=== PATIENT | female | born 1980 | race American Indian/Alaskan Native ===

== ENCOUNTER 2021-04-02 11:57 | Day surgery (SDC) | payer MEDICARE ==
[2021-04-02] MEDS ORDERED: SODIUM CHLORIDE 0.9% 500 ML 500 ML IV SCH (13:00)
[2021-04-02] MEDS ORDERED: HEPARIN/NS 5000 UNIT/500ML 500 ML IR ONE (13:28)
[2021-04-02] MEDS ORDERED: LIDOCAINE (2%) 20 MG/1 ML VIAL 20 ML MDV INFILTRATI ONE (13:28)
[2021-04-02] MEDS ORDERED: SODIUM CHLORIDE 0.9% 250ML 250 ML ONE (13:29)
[2021-04-02 13:38] LABS: Calcium 7.4 mg/dL (8.4-10.2)
[2021-04-02] MEDS: MIDAZOLAM 2 MG/2 ML INJ ONE ×2 (14:47→15:00)
[2021-04-02] MEDS: fentaNYL 100 MCG/2 ML INJ ONE ×2 (14:47→15:00)
[2021-04-02] MEDS: LIDOCAINE (2%) 20 MG/1 ML VIAL 20 ML MDV INFILTRATI ONE ×2 (14:47→15:00)
[2021-04-02] MEDS: HEPARIN 10,000 UNITS/10 ML VIAL ONE ×6 (14:48→15:27)
--- NOTE | 2021-04-02 15:44 | Short Stay Summary ---
Short Stay Documentation Date of service: 04/02/21 Narrative H&P: See Written Short Stay - Allergies and Medications Current Medications: Allergies Penicillins Allergy (Unverified 04/02/21 11:58) Itching,RASH Active Medications Sodium Chloride (Nacl 0.9% 500 Ml) 500 mls @ 50 mls/hr IV DIRECT JAYNA - Brief post op/procedure progress note Date of procedure: 04/02/21 Pre-op diagnosis: Complications of Dialysis Access Post-op diagnosis: same Procedure: 1. Central Venogram 2. Angioplasty of Superior Vena Cava with 12 x 40 EverCross Balloon 3. Exchange of Right Internal Jugular Permacath to 19 cm Glidepath Permacath over Wire 4. Radiologic Supervision with Interpretation 5. Monitored Moderate Sedation (Total Anesthesia Time: 28 Minutes) Anesthesia: local, other (Monitored Moderate Sedation) Surgeon: NAHUM BUSH Estimated blood loss: minimal Pathology: list (Indwelling permacath was discarded) Specimen disposition: discarded Condition: stable - Disposition Condition at discharge: Good Disposition: DC-01 TO HOME OR SELFCARE Short Stay Discharge Plan Activity: no restrictions Wound: keep clean and dry, per wound nurse instructions
--- NOTE | 2021-04-02 15:46 | Operative Report ---
Operative Report Operative Report: Date of Procedure: 04/02/2021 Pre-operative Diagnosis: Complications of Dialysis Access Post-operative Diagnosis: Same Procedure(s): 1. Central Venogram 2. Angioplasty of Superior Vena Cava with 12 x 40 EverCross Balloon 3. Exchange of Right Internal Jugular Permacath to 19 cm Glidepath Permacath over Wire 4. Radiologic Supervision with Interpretation 5. Monitored Moderate Sedation (Total Anesthesia Time: 28 Minutes) Surgeon: Philip Price M.D. Reverberatory Skimmer: None Anesthesia: Local/Monitored Moderate Sedation Total Anesthesia Time: 28 Minutes EBL: Minimal Counts: Correct Complications: None Condition: Stable Specimen: None Indication: The patient is a 40-year-old female with a history of end-stage renal disease who is on hemodialysis through a right internal jugular permacath. She presents with complaints of a malfunctioning permacath and is in need of exchange. She has been given the risk, benefits, and alternative procedures and consented to the procedure. Angiographic Findings: The initial trim mounter film demonstrated that the indwelling permacath was in position with the distal tip slightly extending into the inferior vena cava. The diagnostic venogram demonstrated a fibrin sheath causing narrowing of the entire superior vena cava of approximately 90%. After intervention the superior vena cava was patent with less than 10% residual narrowing. The permacath was placed with the distal tip in the right atrium and no evidence of pneumothorax at the completion of the case. Description of Procedure: The patient was brought to the [facility]rap[facility] and laid in supine position. After timeout was performed her right neck, chest, and indwelling catheter were prepped and draped in normal sterile fashion. 2% lidocaine was used to anesthetize the skin and soft tissue at the exit site of the permacath on the chest and up to the cuff on the permacath. The 0.035 J-wire was advanced to the permacath and into the inferior vena cava. A curved hemostat was used to bluntly dissect the cuff free from the surrounding soft tissue and once the cuff was free the permacath was pulled back into the distal superior vena cava and a diagnostic venogram was performed to the permacath with the previously described findings. The permacath was removed, leaving the wire in place, and an 8 [place] 25 cm sheath was advanced into the superior vena cava. I performed angioplasty of the fibrin sheath using a 12 x 40 EverCross Balloon which resulted in less than 10% residual narrowing of the superior vena cava. I removed the sheath and then advanced a 19 cm Glidepath Permacath into position by Seldinger technique. I removed the wire and stylette and was able to easily aspirated and flushed both ports. I then primed both ports with the appropriate amount heparin and secured the catheter in position with 2-0 Ethilon in interrupted fashion. The catheter was then dressed with a sterile dressing. The patient tolerated the procedure well and was transported to the recovery area in stable condition.
[2021-04-02 16:46] VITALS: BP 111/62
== END 2021-04-02 11:58 | disposition home or self-care (01) ==
LOC: CATHLABREC 11:57
PROVIDERS: ATTEND Surgery Vascular Surgery
DX: T82.49XA Other complication of vascular dialysis catheter, initial encounter (principal); I13.2 Hypertensive heart and chronic kidney disease with heart failure and with stage 5 chronic kidney disease, or end stage renal disease; I50.9 Heart failure, unspecified; N18.6 End stage renal disease; J45.909 Unspecified asthma, uncomplicated; D64.9 Anemia, unspecified; Z83.3 Family history of diabetes mellitus; Z79.899 Other long term (current) drug therapy; Z98.890 Other specified postprocedural states; Z88.0 Allergy status to penicillin; Y82.8 Other medical devices associated with adverse incidents; Y92.89 Other specified places as the place of occurrence of the external cause
CPT/HCPCS: 36415; 36581; 37248; 77001; 80048; 99156; 99157; C1725; C1750; C1894; J1644; J2250; J3010; J7050; Q9967